=== PATIENT | male | born 1955 | race Native Hawaiian/Other Pacific Islander ===

== ENCOUNTER 2018-07-15 10:54 | Outpatient (CLI) | payer OTHER ==
--- NOTE | 2018-07-18 13:11 | CONSULTATION REPORT ---
HISTORY OF PRESENT ILLNESS: Mr. Toni Faye is a 63-year-old white male of [place] descent who I saw in the hospital on June 30 for polyarticular joint pain. I felt that he likely had polyarticular gout. I started him on prednisone and he noted significant improvement. Unfortunately, there was no joint to aspirate at that time. He has had these on-and-off symptoms since 2003. They are periodic and would last a week or so and resolve. Joints affected are his ankles, his knees, and his hands. Although he is doing much better, he still has significant pain in the right 5th digit on the palmar side with swelling. He is walking but with some difficulty. PAST MEDICAL HISTORY: 1. Coronary artery disease. 2. Glaucoma. 3. Hypertension. PAST SURGICAL HISTORY: Eye surgery. PRESENT MEDICATIONS: 1. Rosuvastatin. 2. Omeprazole. 3. Lisinopril. 4. Tramadol as needed. 5. Clopidogrel. 6. Prednisone 10 mg twice a day. ALLERGIES: He reports no known drug allergies. SOCIAL HISTORY: Patient does not smoke or drink. FAMILY HISTORY: Negative from a rheumatological point of view. PHYSICAL EXAMINATION: Vital Signs: T: 97.6, P: 51, R: 14, BP: 117/59. HEENT: External ears and nose are unremarkable. EOM's intact. Lungs: Clear with no crackles or wheezing. Heart: Regular rate and rhythm. Abdomen: Soft and nontender. Vascular: No edema or cyanosis. Joint: Marked improvement in his hands with increased range of motion at the wrists and it applications developer strength. He has some swelling of the flexor tendon of the right 5th digit with tenderness. The left ankle is slightly tender. Achilles tendons are unremarkable. Knees, no effusions. LABORATORY: Review of his labs from June 29, hemoglobin was 10.6. Uric acid on 1 occasion was 7.4 and on another, it was 8.2. CBC was unremarkable. Creatinine was 0.85. IMPRESSION: Polyarticular gout. PLAN: 1. Continue prednisone 10 mg twice a day. I am adding allopurinol 300 mg daily. 2. I will see him back in 4 weeks. Thank you very much. cc: Dr. Suman DILL
== END 2018-07-15 10:56 ==
LOC: RHEU 10:54
PROVIDERS: ATTEND Internal Medicine
DX: M10.00 Idiopathic gout, unspecified site (principal)
CPT/HCPCS: 99213; 99214

== ENCOUNTER 2018-08-12 09:07 | Outpatient (CLI) | payer OTHER ==
--- NOTE | 2018-08-15 08:11 | OP Clinic Progress Note ---
REASON FOR VISIT: Toni Faye is a 63-year-old man from [place] where I first met on June [address] [facility] for polyarticular gout. When I last saw him, I instituted allopurinol 300 mg daily and decreased his prednisone from 10 mg twice a day to 10 mg daily. He suffered a flare which required ambulance transport to [facility]. He almost underwent knee surgery for "septic joint." They did aspirate the joint and crystals were, however, seen and confirmed. He is presently on 30 mg of prednisone and his right knee continues to cause some difficulty and he is doing physical therapy. Otherwise, joints previously affected, such as ankles, knees, and hands, are presently stable. PAST MEDICAL HISTORY: 1. Coronary artery disease. 2. Glaucoma. 3. Hypertension. PAST SURGICAL HISTORY: Eye procedure. PRESENT MEDICATIONS: 1. Rosuvastatin 40 mg at bedtime. 2. Omeprazole. 3. Lisinopril 10 mg daily. 4. Tramadol as needed. 5. Clopidogrel 75 mg daily. 6. Prednisone 30 mg a day. 7. Citalopram 20 mg daily. 8. Bisoprolol 5 mg daily. 9. Allopurinol 300 mg daily. ALLERGIES: He has no known drug allergies. SOCIAL HISTORY: He does not smoke or drink. REVIEW OF SYSTEMS: As above. PHYSICAL EXAMINATION: VITAL SIGNS: Weight: 217. T: 97.2, P: 60, BP: 120/60, R: 20. HEENT: Sclerae are anicteric. Conjunctivae are pink. LUNGS: Clear. HEART: Regular rate and rhythm. ABDOMEN: Soft. VASCULAR: No edema or cyanosis. SKIN: No rashes. PERIPHERAL JOINTS: Upper and lower extremities are unremarkable except for his right knee, which still has a small effusion, mild flexion deformity, and a little pain with hyperextension. IMPRESSION: Polyarticular gout, crystal proven. PLAN: 1. He is to continue tapering his prednisone as per the hospital directions and once he reaches 10 mg, I want him to stay on that. 2. Continue allopurinol. 3. I will see him back in a month and check his uric acid at that time. Thank you very much. Best regards, cc: Dr. Edison Marc [facility]am[facility]
== END 2018-08-12 09:12 | disposition home or self-care (01) ==
LOC: RHEU 09:07
PROVIDERS: ATTEND Internal Medicine
DX: M1A.09X1 Idiopathic chronic gout, multiple sites, with tophus (tophi) (principal)
CPT/HCPCS: 99212; 99213